=== PATIENT | male | born 1970 | race Caucasian/White ===

== ENCOUNTER 2018-12-17 22:00 | Emergency (ER) | payer SELFPAY | END 2018-12-18 01:30 | disposition left against medical advice (07) | LOC: FTE 22:00 | DX: Z53.21 Procedure and treatment not carried out due to patient leaving prior to being seen by health care provider (principal) ==

== ENCOUNTER → 2018-12-19 | Emergency (ER) | payer OTHER | END | disposition home or self-care (01) | LOC: FTE 17:27 | DX: M25.531 Pain in right wrist (principal) | CPT/HCPCS: 29125; 73110-RT; 99283-25 ==